=== PATIENT | female | born 1970 | race Caucasian/White ===

== ENCOUNTER 2019-09-14 13:00 | Emergency (ER) | payer BC ==
[~2019-09-14] VITALS: Ht 170.2 cm; Wt 83.9 kg
--- OUTSIDE RECORDS SUMMARY | 2019-09-14 13:03 | XMS REPORT | Summary of Care ---
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 Name Role Phone Aranza Khan MD PCP Reason for Visit * Reason Comments Follow Up * Consult, Test & Treat (Routine) Referred By Contact Referred To Contact Status Reason Specialty Diagnoses / Procedures Moris Ndiaye MD [address] [id number] Corrie Pascual MD [address] [place] [id number] Authorized Neurology Diagnoses Retinal ischemia ER follow up P rocedures MI OFFICE CONSULTATION NEW/ESTAB PATIENT 60 MIN ESTABLISHED OFFICE VISIT Encounter Details Care Team Description Date Type Department Corrie Pascual MD [address] [place] [id number] Follow Up 05/26/2019 Office Visit [place] [facility] Neurology [address] [place] [address] 9th [facility], [address] [place] [phone] Allergies Comments Active Allergy Reactions Severity Noted Date Clarithromycin 03/07/2015 documented as of this encounter (statuses as of 05/26/2019) Medications End Date Status Medication Sig Dispensed Refills Start Date Active alprazolam (XANAX) 1 MG Take 1 mg by 0 tablet mouth nightly as needed for Sleep. Active Multiple Vitamin (MULTI Take by 0 VITAMIN DAILY OR) mouth. Active Doxepin HCl (SILENOR Take by 0 OR)Indications: mouth. Disturbance of skin sensation, Syncope and collapse, Insomnia, unspecified type Active temazepam (RESTORIL) 15 Take 15 mg by 0 MG capsule mouth nightly as needed for Sleep. Active Methylcobalamin 1000 MCG Take by 0 LOZG mouth. Injection once weekly Active gabapentin (NEURONTIN) Take 1 Cap by 240 Cap 3 300 MG mouth 3 times 8 capsuleIndications: daily. Cervical radiculopathy Active Vitamin D, Take 1 Tab by 5 Cap 2 Ergocalciferol, [address] mouth every 7 9 units CAPSIndications: days. Vitamin D deficiency Active clonazepam (KLONOPIN) 0.5 TK 1/2 T PO Q 0 MG tablet 8 H PRF 9 SEVERE ANXIETY Active prazosin (MINIPRESS) 1 MG Take 1 mg by 0 capsule mouth. Active Syringe/Needle, Disp, For B12 100 Each 1 (SYRINGE 6CC/59UA0-0/2") injections: 9 22G X 1-2" 6 ML 1,000 mcg MISCIndications: B12 once daily or deficiency, Iron every other deficiency day for 1 week, then 1,000 mcg weekly for 4 to 8 weeks, then 1,000 mcg once monthly Active cyanocobalamin 1000 1,000 mcg 10 mL 6 MCG/ML once daily or 9 injectionIndications: B12 every other deficiency, Iron day for 1 deficiency week, then 1,000 mcg weekly for 4 to 8 weeks, then 1,000 mcg once monthly Active cyclobenzaprine TAKE 1 TABLET 90 Tab 3 (FLEXERIL) 5 MG BY MOUTH 9 tabletIndications: THREE TIMES Cervical radiculopathy DAILY NEEDED 05/26/2019 Discontinued methylPREDNISolone Take 1 Tab by 21 Tab 0 (MEDROL DOSEPACK) 4 MG mouth See 8 tablet Admin Instructions. 05/26/2019 Discontinued gabapentin (NEURONTIN) TAKE 1 90 Cap 2 300 MG CAPSULE BY 9 capsuleIndications: MOUTH EVERY Cervical radiculopathy MORNING AND 2 CAPSULES AT BEDTIME 05/26/2019 Discontinued cyclobenzaprine TAKE 1 TABLET 90 Tab 0 (FLEXERIL) 5 MG BY MOUTH 9 tabletIndications: THREE TIMES Cervical radiculopathy DAILY NEEDED documented as of this encounter (statuses as of 05/26/2019) Active Problems Problem Noted Date Memory loss 03/07/2015 Optic neuritis 03/07/2015 documented as of this encounter (statuses as of 05/26/2019) Social History Date Tobacco Use Types Packs/Day Years Used Never Smoker Smokeless Tobacco: Never Used Drinks/Week oz/Week Comments Alcohol Use Not Asked Sex Assigned at Date Recorded Not on file Industry Job Start Date Occupation Not on file Not on file Not on file Travel End Travel History Travel Start No recent travel history available. documented as of this encounter Last Filed Vital Signs Reading Time Taken Comments Vital Sign 129/93 05/26/2019 9:37 AM CDT Blood Pressure 85 05/26/2019 9:37 AM CDT Pulse - - Temperature - - Respiratory Rate - - Oxygen Saturation - - Inhaled Oxygen Concentration 122.5 kg (270 lb) 05/26/2019 9:37 AM CDT Weight 167.6 cm (5' 6") 05/26/2019 9:37 AM CDT Height 43.58 05/26/2019 9:37 AM CDT Body Mass Index documented in this encounter Patient Instructions * Patient Instructions* Corrie Pascual MD - 05/26/2019 9:30 AM CDT 1. IV iron 2. B12 injections 1,000 mcg once daily or every other day for 1 week, then 1,000 mcg weekly for 4 to 8 weeks, then 1,000 mcg once monthly for life Recheck levels in 1 month documented in this encounter Progress Notes * Corrie Pascual MD - 05/26/2019 9:30 AM CDT MIHAI 08/2018 Subjective: is a 49 y.o. woman with a history of migraine, anxiety, and mixed conn ective tissue disease presenting after being referred from MS clinic for paresth esias involving the legs and hands. She was originally seen in the MS clinic aft er an episode of visual blurring in 2014. Multiple sclerosis was ruled out in with normal CSF profile and MRs per EMR. She returned to MS clinic in February because of new bilateral numbness and tingling. Per EMR: "- Starting 02/06/18 had some descending numbness & tingling in her L leg. After a few days the numbness "jumped" from her L leg to her R leg. Was tested for Vit D & B12 (in the 100s) and started on B12 & Vit D. - She was referred from PCP to neurologist, and was started on B12 injections & daily supplements. At that point in time, her symptoms had spread to bilateral hands. She feels numbness, extreme cold, tingling, pins and needles, up to groin & shoulders. - She also noticed some difficulty w/ coordination, she would miss her mouth whe n she tried to eat. 03/19, noticed that her fingers would curl bilaterally. 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 - Now walking with a walker (though can ambulate without). - She had a gastric sleeve 2 years ago and has not been on B12 supplementation s ayush." Gabapentin 300mg bid prescribed at the last visit which seems to help somewhat ( currently taking 300/600). She also describes tension in her neck separate from her baseline migraines. EMG 04/02/18 with no evidence of neuropathy or radiculopat hy. She is receiving B12 injections weekly. Also on vitamin D. Also told she has non-macrocytic anemia but has not been instructed to take iron. Pins and needles in fingers and feet has improved significantly but still has oc casional symptoms. More recently, last week she has noted a stabbing, shocking sensation whenever s he flexes her neck that radiates down her arms symmetrically. This has limited h er daily activities as she is unable to flex her neck without experiencing sympt oms. She has been taking high doses of anti-inflammatories daily. Lastly, she de scribes cramping in the intercostal area especially when she moves "in the wrong way". - Pain may be causing sleep-maintenance insomnia - Discusses stressors of Appetite+ia and concern that she will need to request FMLA Interim hx: Recently admitted to [place] for muscle spasms - She states that particular day was busier than usual, missed muscle relaxer. B angélica to experience diffuse pain. While at work she noted R facial twitching, no LOC. Within a few minutes noticed eye twitching. Took a xanax and gabapentin and flexeril but twitching continued. Also with pull ing sensation of face and mouth clenching. Unable to write. Prior to that she had been having trouble walking. Ambulance picked her up from work. The episode lasted for several hours (had res idual teeth clenching). Had a stroke workup. EEG performed the following day was unrevealing. Psychiatrist discontinued pristiq (serotonin syndrome vs focal seizure) Started on klonipin (xanax discontinued) Using a cane due to worsening gait. Has noticed new neuropathy in legs below kne es Faith: JOHN, disability placadrián B12 dropped from 610-->168 (pt states she ran out of B12 shots; prior gastric sleeve) Hb 10.6, MCV 78 Ferritin 9, Fe 38 A1c 6 (prev 5.4) Also craving dirt, pennies, ice. +RLS REVIEW OF SYSTEMS: Constitutional: Normal, + fatigue Eyes: no diplopia, visual blurring ENT: No recent sinus, ear, or throat infections. Respiratory: No SOB no Cough Cardio: no chest pain, no heart racing GI: No constipation , denies melena/hematochezia : no frequency, urgency, incontinence Skin/Teg: No skin rashes. Musculoskeletal: as above Psychiatric: no depression, +anxiety Endocrine: None Neurological: as above Current Outpatient Medications on File Prior to Visit Medication Sig Dispense Refill alprazolam (XANAX) 1 MG tablet Take 1 mg by mouth nightly as needed for Slee p. clonazepam (KLONOPIN) 0.5 MG tablet TK 1/2 T PO Q 8 H PRF SEVERE ANXIETY 0 cyclobenzaprine (FLEXERIL) 5 MG tablet TAKE 1 TABLET BY MOUTH THREE TIMES DA ROVERTO NEEDED 90 Tab 0 Doxepin HCl (SILENOR OR) Take by mouth. gabapentin (NEURONTIN) 300 MG capsule Take 1 Cap by mouth 3 times daily. ([place] hernandez taking differently: Take 300 mg by mouth See Admin Instructions. Indicatio ns: 4 Capsules in the morning 4 Capsules at Bedtime) 240 Cap 3 Methylcobalamin 1000 MCG LOZG Take by mouth. Injection once weekly Multiple Vitamin (MULTI VITAMIN DAILY OR) Take by mouth. prazosin (MINIPRESS) 1 MG capsule Take 1 mg by mouth. temazepam (RESTORIL) 15 MG capsule Take 15 mg by mouth nightly as needed for Sleep. Vitamin D, Ergocalciferol, 30360 units CAPS Take 1 Tab by mouth every 7 days . 5 Cap 2 No current facility-administered medications on file prior to visit. FHx: +FHx NHL (brother and GM), mother with NSCLC NEUROLOGIC EXAMINATION: Vital Signs Height: 5' 6" (167.6 cm) Weight - Scale: 270 lb (122.5 kg) Pulse: 85 BP: (!) 129/93 Patient Position: Sitting Cuff Size: regular BP Location: right wrist Alert and Oriented in place, person and Time. Speech is fluent, non-dysarthric. HEENT: NCAT, conjugate gaze, sclera anicteric Extremities: Warm, nontender, nonedematous. Neuro: - HIF: Language/speech fluent and appropriate. Oriented to person/place/time. Ca n state VIOLET backwards. Follows all commands. - CN: Pupils 5->3mm bilat to light with no APD; EOMI; V1-3 intact, no facial asymmetry, hearing intact to finger rub bilaterally, palate/tongue midline. Traps/SCM intact. - M: Nml bulk/tone. No pronator drift. - LUE: 5-/5 - RUE: 5-/5 - LLE: 4/5 - RLE: 4/5 - S: SILT - R: Triceps, biceps, brachioradialis 2+ BL. Patellars 2+, Achilles 1+ BL. No cl onus. Plantar flexion bilat. - C/G: Ambulates with cane but wide based and unsteady. Unable to stand without assistance of cane. Labs EMG 04/02/18: 1. Limited EMG of the right arm and leg due to lack of full voluntary effort wit h no evidence of 2. Normal motor conduction studies of the right arm and both legs with normal se nsory conduction. No evidence of neuropathy or radiculopathy on this study. MR C-spine 03/2018: 1. Severe degenerative foraminal stenosis on the right at C6-C7. Otherwise no significant degenerative changes or stenoses.. 2. Normal cervical spinal cord. CTA 06/2018: No cervical or intracranial arterial stenosis or occlusion or vascular malformation. ASSESSMENT: Maira Reidton Pepito is a 49 y.o. with anxiety, s/p gastric sleeve surgery, mix ed connective tissue disorder and B12 / iron deficiency who initially presented with numbness, paresthesias secondary to the B12 deficiency which is improving w ith supplementation and gabapentin. Repeat MR C-spine with severe foraminal sten osis involving right C6-7. She was hospitalized in early 2018 for optic neuriti s of unclear etiology. The B12 deficiency has been attributed to gastric sleeve but the iron deficiency is of unclear etiology. - B12 injections ordered (instructions in AVS) - Recheck levels in 1 month - PCP to order iron infusions (discussed risk of anaphylaxis) - Ophtho follow up - Heme, GI follow up Consider blood smear + bone marrow bx- - Vit D 50,000 qwk - Continue gabapentin, prn cyclobenzaprine - Psychiatry as scheduled I personally spent a total of 55 minutes with the patient with 45 minutes spent in counseling and coordination of care. A discussion regarding diagnosis and lizabeth atment options was held. RTC 2-3 mos Corrie Pascual MD documented in this encounter Plan of Treatment Health Maintenance Due Date Last Done Comments COLON CANCER SCREENIN1968 COLONOSCOPY MAMMOGRAM ANNUAL 1968 TETANUS SHOT (ADULT) 1983 BMI FOLLOW UP PLAN 1986 HIV SCREENING 1986 CERVICAL CANCER SCREENING 1989 3 YEAR FOLLOW UP FLU VACCINE > 6 MONTHS 02/26/2019 documented as of this encounter Results Not on filedocumented in this encounter Visit Diagnoses Diagnosis B12 deficiency - Primary Other B-complex deficiencies Iron deficiency Other disorders of iron metabolism Macular ischemia Retinal ischemia Cervical radiculopathy Brachial neuritis or radiculitis nos documented in this encounter Insurance Type Payer Benefit Subscriber ID Effective Phone Address Plan / Dates [facility] x[facility]-[address] [facility] [place] [facility] [id number] [place] [phone] documented as of this encounter
--- OUTSIDE RECORDS SUMMARY | 2019-09-14 13:03 | XMS REPORT ---
Author Author [facility] Address Unknown Phone Unavailable Care Team Providers Care Mentally Retarded Teacher Name Role Phone Unavailable Unavailable Payers Payer Name Policy Type Policy Number Effective Date Expiration Date Problems This patient has no known problems. Allergies, Adverse Reactions, Alerts Allergy Name Allergy Type Status Severity Reaction(s) Onset Date Inactive Date Treating Clinician Comments clarithromycin DA Active MO 2013-09-14 00:00:00 Medications This patient has no known medications. Results Test Description Test Time Test Comments Text Results Atomic Results Result Comments - MRI BRAIN W WO CONT 2019-05-15 14:56:00 FAX: Essie Nolen MD [phone] [place]: B St: ADM FAX: Yo Vyas MD [phone] Name: JOSE JOSEPH [facility] : 1970 Age/S: 49/F [address] Unit #: [id number] Loc: V.2056 [place] [address] Phys: Essie Moeller MD Acct: [id number] Dis Date: Status: ADM IN PHONE #: [phone] Exam Date: 05/15/2019 1439 FAX #: [phone] Reason: change in speech; change in ambulation EXAMS: CPT CODE: [id number] MRI BRAIN W WO CONT 42338 HISTORY: Change in speech and ambulation. COMPARISON: Head CT from previous day. MRI brain with and without contrast: No acute territorial vascular or acute lacunar infarction. No MR evidence for hemorrhage. No extra-axial fluid collections. Mild periventricular white matter ischemic change. No herniation, hydrocephalus or midline shift. Fourth ventricle does remain midline. No extra-axial fluid collections. The expected flow-voids noted within the major intracranial vasculature. VII and VIII nerve complex are symmetrical and normal. Mastoid air cells are clear. Sinuses are clear. Intraorbital contents are unremarkable. Midbrain, brian and medulla are without mass effect. No cerebellar ectopia. Pituitary gland, optic chiasm and corpus callosum are normal. Following gadolinium no abnormal enhancing masses or lesions or meningeal enhancement is noted. Well-opacified dural sinuses. IMPRESSION: No abnormal enhancing masses or lesions or meningeal enhancement. No acute territorial vascular or acute lacunar infarction. No herniation, hydrocephalus or midline shift. at 8404 Reported and signed by: Ben Noel M.D. CC: Essie Moeller MD; Yo Vyas MD Technologist: Tereza Worthington(R)(MR) Trnscrd Date/Time/By: 05/15/2019 (7543) : By: [email or web address] Orig Print D/T: S: 05/15/2019 (5107) PAGE 1 Signed Report URINALYSIS COMPLETE 2019-05-14 23:06:00 UA COLOR (test code=COLU) COLORLESS YELLOW UA APPEARANCE (test code=APPU) CLEAR CLEAR UA GLUCOSE DIPSTICK (test code=DGLUU) NEGATIVE mg/dL NEGATIVE UA BILIRUBIN DIPSTICK (test code=BILU) NEGATIVE mg/dL NEGATIVE UA KETONE DIPSTICK (test code=KETU) NEGATIVE mg/dL NEGATIVE UA SPECIFIC GRAVITY (test code=SGU) 1.011 1.001-1.035 UA BLOOD DIPSTICK (test code=DENISSE) Negative mg/dL NEGATIVE UA PH DIPSTICK (test code=REDDY) 5.5 5.0-8.0 UA PROTEIN DIPSTICK (test code=PROU) NEGATIVE mg/dL NEGATIVE UA UROBILINIOGEN DIPSTICK (test code=URO) Normal mg/dL NEGATIVE UA NITRITE DIPSTICK (test code=CHELSEA) NEGATIVE NEGATIVE UA LEUKOCYTE ESTERASE W REFLEX (test code=LEUUR) NEGATIVE Genie/uL NEGATIVE UA WBC (test code=WBCU) 0-5 per HPF 0-5 UA RBC (test code=RBCU) 0-2 #/HPF 0-5 UA EPITHELIAL CELLS (test code=EPIU) FEW per HPF FEW UA BACTERIA (test code=BACU) NONE SEEN #/HPF NONE UA MUCUS (test code=MUCU) FEW #/LPF FEW Urine Source? Clean CatchDRUGS OF ABUSE SCREEN [id number] 23:06:00* Test Item Value Reference Range Comments URN COCAINE (test code=COCAURN) NEGATIVE <300 ng/mL URN CANNABINOIDS (test code=CANNABURN) NEGATIVE <50 ng/mL URN AMPHETAMINE (test code=AMPHETURN) NEGATIVE <1000 ng/mL URN BARBITURATE (test code=BARBITURN) NEGATIVE <200 ng/mL URN BENZODIAZEPINE (test code=BENZOURN) NEGATIVE <200 ng/mL URN OPIATES (test code=OPIATURN) NEGATIVE <300 ng/mL URN PHENCYCLIDINE (PCP) (test code=PHENCURN) NEGATIVE <25 ng/mL URN METHADONE (test code=METHAURN) NEGATIVE <300 ng/mL Urine Source? Clean CatchURINALYSIS [id number] 22:47:00* Test Item Value Reference Range Comments UA COLOR (test code=COLU) COLORLESS YELLOW UA APPEARANCE (test code=APPU) CLEAR CLEAR UA GLUCOSE DIPSTICK (test code=DGLUU) NEGATIVE mg/dL NEGATIVE UA BILIRUBIN DIPSTICK (test code=BILU) NEGATIVE mg/dL NEGATIVE UA KETONE DIPSTICK (test code=KETU) NEGATIVE mg/dL NEGATIVE UA SPECIFIC GRAVITY (test code=SGU) 1.011 1.001-1.035 UA BLOOD DIPSTICK (test code=DENISSE) Negative mg/dL NEGATIVE UA PH DIPSTICK (test code=REDDY) 5.5 5.0-8.0 UA PROTEIN DIPSTICK (test code=PROU) NEGATIVE mg/dL NEGATIVE UA UROBILINIOGEN DIPSTICK (test code=URO) Normal mg/dL NEGATIVE UA NITRITE DIPSTICK (test code=CHELSEA) NEGATIVE NEGATIVE UA LEUKOCYTE ESTERASE W REFLEX (test code=LEUUR) NEGATIVE Genie/uL NEGATIVE UA WBC (test code=WBCU) 0-5 per HPF 0-5 UA RBC (test code=RBCU) 0-2 #/HPF 0-5 UA EPITHELIAL CELLS (test code=EPIU) FEW per HPF FEW UA BACTERIA (test code=BACU) NONE SEEN #/HPF NONE UA MUCUS (test code=MUCU) FEW #/LPF FEW Urine Source? Clean CatchDRUGS OF ABUSE SCREEN [id number] 22:47:00* Test Item Value Reference Range Comments URN COCAINE (test code=COCAURN) <300 ng/mL URN CANNABINOIDS (test code=CANNABURN) <50 ng/mL URN AMPHETAMINE (test code=AMPHETURN) <1000 ng/mL URN BARBITURATE (test code=BARBITURN) <200 ng/mL URN BENZODIAZEPINE (test code=BENZOURN) <200 ng/mL URN OPIATES (test code=OPIATURN) <300 ng/mL URN PHENCYCLIDINE (PCP) (test code=PHENCURN) <25 ng/mL URN METHADONE (test code=METHAURN) <300 ng/mL Urine Source? Clean Catch- XR HIP W/PEL UNI 2+V [id number] 21:09:00 FAX: Yo Vyas MD [phone] [place]: St: ADM FAX: Rex Kaufman NP [phone] Name: JOSEPHJOSE [facility] : 1970 Age/S: 49/F [address] [facility] Unit #: [id number] Loc: [address]indsay[address] [place] [address] Phys: MandeepRex HINTON Acct: [id number] Dis Date: Status: ADM IN PHONE #: [phone] Exam Date: 05/14/20192104 FAX #: [phone] Reason: right hip pain EXAMS: CPT CODE: [id number] XR HIP W/PEL UNI 2+[place] [address] HISTORY: Right hip pain. COMPARISON: None available. 3 views of the right hip: No acute fracture or di slocation. The hip joint is preserved. No AVN. Trabecular pattern and m ineralization are normal. Acetabulum is unremarkable. Symphysis is well opposed. SI joint is unremarkable. Pelvic ring appears intact on a singl e view. IMPRESSION: No acute fracture or dislo cation. Hip joint is preserved without AVN. at 2108 Reported and s igned by: Ben Noel M.D. CC: Yo Vyas MD; Rex Royal NP Technologist: YOEL EASON Trnprrd Date/Time/By: 05/14/2019 (2108) : By: [email or web address] Orig Print D/T: S: 05/14/2019 (2111) PAGE 1 Signed Report [id number] 19:26:00* Test Item Value Reference Range Comments ALCOHOL (test code=ALC) < 3 mg/dL 0.0-3.0 INTERPRETIVE DATA NOTE: POSITIVE SCREENING RESULTS SHOULD BE CONSIDERED PRESUMPTIVE.WHEN COLLECTED FOR MEDICAL PURPOSES ONLY. SPECIMEN WILL NOTBE COLLECTED BY CHAIN OF CUSTODY.IF A CONFIRMATION OF POSITIVE RESULTS IS DESIRED, ACONFIRMATION TEST MUST BE REQUESTED BY THE PHYSICIAN AT ANADDITIONAL CHARGE TO THE PATIENT. CREATINE KINASE (CK)2019-05-14 15:41:00* Test Item Value Reference Range Comments CREATINE KINASE (CK) (test code=CK) 112 IUnit/L - [id number] 15:41:00* Test Item Value Reference Range Comments ALCOHOL (test code=ALC) 6 mg/dL 0.0-3.0 INTERPRETIVE DATA NOTE: POSITIVE SCREENING RESULTS SHOULD BE CONSIDERED PRESUMPTIVE.WHEN COLLECTED FOR MEDICAL PURPOSES ONLY. SPECIMEN WILL NOTBE COLLECTED BY CHAIN OF CUSTODY.IF A CONFIRMATION OF POSITIVE RESULTS IS DESIRED, ACONFIRMATION TEST MUST BE REQUESTED BY THE PHYSICIAN AT ANADDITIONAL CHARGE TO THE PATIENT. BASIC METABOLIC [id number] 15:10:00* Test Item Value Reference Range Comments SODIUM (test code=NA) 141 mmol/L 136-145 POTASSIUM (test code=K) 4.6 mmol/L 3.5-5.1 CHLORIDE (test code=CL) 108.0 mmol/L 98-107 CARBON DIOXIDE (test code=CO2) 25.0 mmol/L 21-32 ANION GAP (test code=GAP) 12.6 10-20 GLUCOSE (test code=GLU) 78 mg/dL 74-106 BLOOD UREA NITROGEN (test code=BUN) 10 mg/dL 7-18 GLOMERULAR FILTRATION RATE (test code=GFR) > 60 mL/min >=60 Estimated GFR by using Modified MDRD formula.Chronic kidney disease is defined as either kidney damageor GFR <60 mL/min/1.73 m2 for >3 months. CREATININE (test code=CREAT) 0.70 mg/dL 0.55-1.02 Note change in reference range due to change in reagent. BUN/CREATININE RATIO (test code=BUN/CREA) 14.6 10-20 CALCIUM (test code=CA) 9.0 mg/dL 8.5-10.1 [id number] 15:10:00* Test Item Value Reference Range Comments TROPONIN-I (test code=TROPI) <0.015 ng/mL 0-0.045 BASIC METABOLIC [id number] 15:00:00* Test Item Value Reference Range Comments SODIUM (test code=NA) 141 mmol/L 136-145 POTASSIUM (test code=K) 4.6 mmol/L 3.5-5.1 CHLORIDE (test code=CL) 108.0 mmol/L 98-107 CARBON DIOXIDE (test code=CO2) mmol/L 21-32 ANION GAP (test code=GAP) 10-20 GLUCOSE (test code=GLU) mg/dL 74-106 BLOOD UREA NITROGEN (test code=BUN) mg/dL 7-18 GLOMERULAR FILTRATION RATE (test code=GFR) mL/min >=60 CREATININE (test code=CREAT) mg/dL 0.55-1.02 BUN/CREATININE RATIO (test code=BUN/CREA) 10-20 CALCIUM (test code=CA) mg/dL 8.5-10.1 [id number] 15:00:00* Test Item Value Reference Range Comments TROPONIN-I (test code=TROPI) ng/mL 0-0.045 CBC W/AUTO [id number] 14:55:00* Test Item Value Reference Range Comments WHITE BLOOD CELL (test code=WBC) 9.8 K/mm3 4.5-12.5 RED BLOOD CELL (test code=RBC) 3.97 mill/mm3 3.7-5.2 HEMOGLOBIN (test code=HGB) 10.1 gram/dL 11.5-15.5 HEMATOCRIT (test code=HCT) 33.1 % 36.0-46.0 MEAN CELL VOLUME (test code=MCV) 83.4 fL 80-98 MEAN CELL HGB (test code=MCH) 25.4 picogram 27.0-33.0 MEAN CELL HGB CONCETRATION (test code=MCHC) 30.5 gram/dL 33.0-36.0 RED CELL DISTRIBUTION WIDTH (test code=RDW) 15.2 % 11.6-16.2 RED CELL DISTRIBUTION WIDTH SD (test code=RDW-SD) 44.4 fL 37.0-51.0 PLATELET COUNT (test code=PLT) 214 K/mm3 150-450 MEAN PLATELET VOLUME (test code=MPV) 11.9 fL 6.7-11.0 NEUTROPHIL % (test code=NT%) 61.8 % 39.0-69.0 IMMATURE GRANULOCYTE % (test code=IG%) 0.2 % 0.0-5.0 LYMPHOCYTE % (test code=LY%) 29.9 % 25.0-55.0 MONOCYTE % (test code=MO%) 5.6 % 0.0-10.0 EOSINOPHIL % (test code=EO%) 1.9 % 0.0-5.0 BASOPHIL % (test code=BA%) 0.6 % 0.0-1.0 NUCLEATED RBC % (test code=NRBC%) 0.0 % 0-0 NEUTROPHIL # (test code=NT#) 6.06 K/mm3 1.8-7.7 IMMATURE GRANULOCYTE # (test code=IG#) 0.02 x10 3/uL 0-0.03 LYMPHOCYTE # (test code=LY#) 2.93 K/mm3 1.0-5.0 MONOCYTE # (test code=MO#) 0.55 K/mm3 0-0.8 EOSINOPHIL # (test code=EO#) 0.19 K/mm3 0.0-0.5 BASOPHIL # (test code=BA#) 0.06 K/mm3 0.0-0.2 NUCLEATED RBC # (test code=NRBC#) 0.00 K/mm3 0.0-0.1 - XR CHEST 1 [id number] 14:49:00 FAX: Praveen Acosta DO [place]: B St: PRE Name: JOSE ORTEZ [facility] : [birth year] Age/S: 49/F [address] Unit #: [id number] Loc: [place] [address] Phys: Praveen Acosta DO Acct: [id number] Dis Date: Status: PRE ER PHONE #: [phone] Exam Date: 05/14/2019 1446 FAX #: [phone] Reason: CODE STROKE EXAMS: CPT CODE: [id number] XR CHEST 1 V 90240 HISTORY: Stroke. COM PARISON: None available. No acute infiltrates, effusion or congest ion is noted. Suboptimal inspiration. Cardiomegaly. IMPRE SSION: No acute infiltrates, effusion or congestion. at 1449 Reported and signed by: Ben Noel M.D. CC: Praveen Acosta DO Technologist: RT CAROLIN(R) Trnscrd Date/Time/By: 04/28 (4045) : By: [email or web address] Orig Print D/T: S: 05/14/2019 (1662) PAGE 1 Signed Report PROTHROMBIN [id number] 14:43:00* Test Item Value Reference Range Comments PROTHROMBIN TIME PATIENT (test code=PTP) 11.3 seconds 9.0-14.0 INTERNATIONAL NORMAL RATIO (test code=INR) 1.0 0.8-1.2 The therapeutic range for oral anticoagulant therapy formost indications is an international normalized ratio (INR)of between 2.0 and 3.0. The recommended therapeutic INRrange for various clinical situations is listed below: Clinical Situation INR range Pulmonary e mbolism treatment (2.0-3.0)Venous thrombosis treatmentVenous thrombosis prophylaxis (high risk surgery)Prevention of systemic embolism from: Acute myocardial infarction Valvular heart disease Atrial fibrillation Mechanical prosthetic heart valves (2.5-3.5) IS PATIENT ON ANTICOAGULANTS? NTHROMBOPLASTIN TIME [id number] 14:43:00* Test Item Value Reference Range Comments THROMBOPLASTIN TIME PARTIAL (test code=PTT) 53.9 seconds 25.0-36.5 IS PATIENT ON ANTICOAGULANTS? N- CT HEAD/BRAIN W/O [id number] 14:42:00 Name: JOSE JOSEPH [facility] : 1970 Age/S: 49 / F [address] Unit #: [id number] Loc: [place] [address] Phys: Praveen Acosta DO Acct: [id number] Dis Date: Status: PRE ER PHONE #: [phone] Exam Date: 05/14/2019 1435 FAX #: Reason: change in speech EXAMS: CPT CODE: [id number] CT HEAD/BRAIN W/O CONT 26053 HISTORY: Change in speech. COMPARISON: None available. CT brain without contr ast: Automated exposure control. No acute intracranial bleeds or e xtra-axial collections are noted. No acute territorial vascular infarction is noted. The sulci, gyri, ventricles and subarachnoid spaces and the basilar cisterns are normal for patient's age. No herniation or hydro cephalus or midline shift is noted. Mild periventricular isc hemic gliosis is noted. Age-appropriate atrophy is noted as well. Portions of the visualized paranasal sinuses are normal. No obvious bony calvarial defect is noted. IMPRESSION: No acute intracranial bleeds or extra-axial collections. No acute territorial vascular infarction. No herniation or hy drocephalus or midline shift. Chronic white matter ischemic d isease and atrophy . These findings were discussed with Dr. Cleveland hernandez at 2:40 PM. FOR INTERNAL CODING PURPOS ES ONLY RESULT CODE: CVR Electronically Sign ed by Martha Noel on 05/14/2019 at 1442 Reported a nd signed by: Ben Noel M.D. CC: Praveen Acosta DO Technologist:Gregg Hitchcock RT(R),(MR),(CT) CTDI: DLP: Trnscb Date/Time: 05/14/2019 (7072) [email or web address] Orig Print D/T: S: 05/14/2019 (2378) [address], CAROTID, [id number] 21:06:00FINAL REPORT Examination: Cervical and Intracranial CT Angiogram with ContrastHistory: 48-year-old female with numbness and paresthesias involving the legs and hands and vision changes; history of anxiety, migraines and mixed connective tissue disease.Comparison studies: None Technique: Axial images were obtained from the thoracic inlet.Coronal and sagittal images reconstructed from the axial data.Intravenous contrast: 100 mL of Omnipaque 350.Degree of stenosis at the carotid bulbs, if present, will be calculated using NASCET criteria where the smallest diameter at the location of stenosis is compared to the diameter of the more distal non-diseased vessel lumen.Computer generated maximum intensity projection and 3D images of the cervical and intracranial anterior and posterior circulations were performed on a separate workstation.Dose modulation, iterative reconstruction, and/or weight based adjustment of the mA/kV was utilized to reduce the radiation dose to as low as reasonably achievable. Findings:CTA neck:Aortic arch and major vessels:Patent. Common carotid arteries:Patent C ervical carotid bifurcations:Right: Patent.Left :Patent. Internal carotid arteri es:Right: Patent.Left: Patent. Vertebral arteries:Patent. CTA head: Internal car otid arteries:Patent.. Anterior cerebral arteries:Patent.. Middle cerebral arter ies:Patent.. Posterior cerebral arteries:Patent. Vertebro-basilar system:Patent. Anatomical variants:Anterior communicating artery :PresentPosterior communicat ing arteries: Not visualized.Vertebral arteries: Codominant. IMPRESSION: No cerv ical or intracranial arterial stenosis or occlusion or vascular malformation. Si gned: Natasha Estrada MDReport Verified Date/Time: 08/08/2018 21:06:51 Rolo huff Location: [facility] Reading Room [address] [place] [address] , CTANGIO [id number] 08:05:00 FINAL REPORT Examination: Cervical and Intracranial CT An giogram with ContrastHistory: 48-year-old female with numbness and paresthesias involving the legs and hands and vision changes; history of anxiety, migraines a nd mixed connective tissue disease.Comparison studies: None Technique: Axial real ges were obtained from the thoracic inlet.Coronal and sagittal images reconstru cted from the axial data.Intravenous contrast: 100 mL of Omnipaque 350.Degree of stenosis at the carotid bulbs, if present, will be calculated using NASCET crit eria where the smallest diameter at the location of stenosis is compared to the diameter of the more distal non-diseased vessel lumen.Computer generated maximum intensity projection and 3D images of the cervical and intracranial anterior and posterior circulations were performed on a separate workstation.Dose modulation, iterative reconstruction, and/or weight based adjustment of the mA/kV was uti lized to reduce the radiation dose to as low as reasonably achievable. Findings :CTA neck:Aortic arch and major vessels:Patent. Common carotid arteries:Patent C ervical carotid bifurcations:Right: Patent.Left :Patent. Internal carotid arteri es:Right: Patent.Left: Patent. Vertebral arteries:Patent. CTA head: Internal car otid arteries:Patent.. Anterior cerebral arteries:Patent.. Middle cerebral arter ies:Patent.. Posterior cerebral arteries:Patent. Vertebro-basilar system:Patent. Anatomical variants:Anterior communicating artery :PresentPosterior communicat ing arteries: Not visualized.Vertebral arteries: Codominant. IMPRESSION: No cerv ical or intracranial arterial stenosis or occlusion or vascular malformation. Si gned: Natasha Estrada Verified Date/Time: 07/30/2018 08:05:22 Rolo huff Location: [facility] Room [address] [place] [address]
[2019-09-14] MEDS ORDERED: SODIUM CHLORIDE 0.9% 1000ML 1,000 ML IV STA (13:04)
[2019-09-14] MEDS ORDERED: ASPIRIN 81 MG CHEW TAB PO ONE (13:15)
[2019-09-14 14:10] LABS: BASOPHILS # (AUTO) 0.1 (0.0-0.1); BASOPHILS % 0.7 % (0.0-1.0); EOSINOPHILS # (AUTO) 0.1 (0.0-0.4); EOSINOPHILS % 0.9 % (0.0-6.0); HEMATOCRIT 37.1 % (34.2-44.1); LYMPHOCYTES # (AUTO) 2.5 (1.0-3.2); LYMPHOCYTES % 27.7 % (18.0-39.1); MEAN CORPUSCULAR HEMOGLOBIN 27.8 pg (28-32); MEAN CORPUSCULAR HGB CONC 32.3 g/dL (31-35); MEAN CORPUSCULAR VOLUME 86.1 fL (81-99); MONOCYTES # (AUTO) 0.4 (0.2-0.8); MONOCYTES % 4.5 % (4.4-11.3); NEUTROPHILS # (AUTO) 6.1 (2.1-6.9); PLATELET COUNT 263 x10e3/uL (140-360); RED BLOOD COUNT 4.31 x10e6/uL (3.6-5.1); RED CELL DISTRIBUTION WIDTH 14.6 % (11.7-14.4)
[2019-09-14 14:20] LABS: INR 0.94; PROTHROMBIN TIME 13.1 seconds (11.9-14.5)
--- NOTE | 2019-09-14 14:24 | Diagnostic Imaging Report ---
EXAMINATION: CHEST SINGLE (PORTABLE) INDICATION: Weakness COMPARISON: None FINDINGS: LINES/TUBES:EKG leads overlie the chest. LUNGS:The lungs are well-inflated. No focal consolidation or pulmonary edema. PLEURA:No pleural effusion or pneumothorax. MEDIASTINUM:The cardiomediastinal silhouette appears normal in size and shape. BONES/SOFT TISSUES:No acute osseous injury. ABDOMEN:No free air under the diaphragm. IMPRESSION: No focal pneumonia or pulmonary edema. Signed by: Zenobia Zambrano MD on 09/14/2019 2:21 PM
[2019-09-14 14:27] LABS: ALANINE AMINOTRANSFERASE 18 IU/L (0-55); ALBUMIN 3.9 g/dL (3.5-5.0); ALBUMIN/GLOBULIN RATIO 1.3 (0.8-2.0); ALKALINE PHOSPHATASE 71 IU/L (40-150); ANION GAP 16.1 mmol/L (8-16); BLOOD UREA NITROGEN 11 mg/dL (7-26); BUN/CREATININE RATIO 13 (6-25); CALCIUM 9.6 mg/dL (8.4-10.2); CARBON DIOXIDE 22 mmol/L (22-29); CHLORIDE 108 mmol/L (98-107); CREATINE KINASE 43 IU/L (29-168); CREATININE, SERUM 0.83 mg/dL (0.57-1.11); EST GLOMERULAR FILTRATION RATE > 60 ML/MIN (60-); GLUCOSE 88 mg/dL (74-118); POTASSIUM 4.1 mmol/L (3.5-5.1); SODIUM 142 mmol/L (136-145)
[2019-09-14] MEDS ORDERED: ONDANSETRON HCL INJ 2MG/ML 2ML 2 MG/ML VIAL IV PRN (15:00)
[2019-09-14] MEDS ORDERED: LORAZEPAM INJ 2 MG/ML VIAL IV ONE (16:00)
--- NOTE | 2019-09-14 16:12 | Diagnostic Imaging Report ---
History:Left-sided weakness Comparison studies: None Technique: Axial images were obtained from the skull base to the vertex prior to and following administration of IV contrast. Multiplanar MIP and volume rendered 3-D images of the grindstone of [place] were obtained from from the axial data. Dose modulation, iterative reconstruction, and/or weight based adjustment of the mA/kV was utilized to reduce the radiation dose to as low as reasonably achievable. Intravenous contrast: 100 cc of Isovue-370. Findings: Head CT: Scalp: No abnormalities. Bones: No fractures, blastic or lytic lesions. Brain sulci: Appropriate for age. Ventricles: Normal in size and configuration. No hydrocephalus. Extra-axial spaces: No masses, no fluid collection. Parenchyma: No abnormal densities. No mass, acute hemorrhage or acute or chronic cortical insults. Sellar/suprasellar region: No abnormalities. Craniocervical junction: Patent foramen magnum. No Chiari one malformation. Paranasal sinuses: Clear. Middle ear mastoid cavities: Clear. Anatomical variant pneumatized petrous apices. Intracranial CTA: No aneurysm or arterial vascular malformation identified. Anterior circulation: Internal carotid arteries: Patent, no abnormalities Middle cerebral arteries: Patent, no proximal branch occlusion or stenosis. Anterior cerebral arteries: Patent, no proximal branch occlusion or stenosis. Posterior circulation: Vertebral arteries: Patent, no abnormalities. Basilar artery: Patent, no abnormalities. Posterior cerebral arteries: Patent, no proximal branch occlusion or stenosis. Anatomical variants: Anterior communicating artery: Patent. Posterior communicating arteries: Patent on the left. Hypoplastic on the right. Vertebral arteries: Codominant. IMPRESSION: Head CT: No acute intracranial abnormalities. Intracranial CTA: No acute abnormalities. Specifically, no major arterial branch occlusion or stenosis. Signed by: Dr. Doyle Meneses M.D. on 09/14/2019 4:10 PM
--- NOTE | 2019-09-14 16:19 | NUR ---
contacted transfer center at 0653
[2019-09-14] MEDS ORDERED: METHYLPREDNISOLONE SOD SUCC 125 MG/2ML VIAL IV ONE (16:30)
[2019-09-14] MEDS ORDERED: IOPAMIDOL 370 MG/ML 200 ML INFUS..BTL INJ ONE (18:21)
[2019-09-14] MEDS ORDERED: SODIUM CHLORIDE 0.9% 100 ML ONE (18:21)
--- NOTE | 2019-09-14 18:54 | NUR ---
[facility] called for transport
[2019-09-14] MEDS ORDERED: ACETAMINOPHEN 325 MG TAB PO ONE (20:00)
[2019-09-14] MEDS ORDERED: ACETAMINOPHEN 325 MG TAB ONE (20:07)
--- NOTE | 2019-09-14 20:24 | NUR ---
Pt self administering Clonazepam 1 mg, Cyclobenzaprine 10 mg. EMS is in room for transport to [facility].
[2019-09-14 20:36] VITALS: BP 119/71
== END 2019-09-14 20:37 | disposition other institution (70) ==
LOC: ER 13:00
DX: R53.1 Weakness (principal); G72.3 Periodic paralysis; R29.818 Other symptoms and signs involving the nervous system
CPT/HCPCS: 36415; 70496; 71045; 80053; 82550; 82553; 83880; 84484; 85025; 85610; 93005; 99284; J2060; J2930; J7030; J7050; Q9967